=== PATIENT | female | born 1965 | race Caucasian/White ===

== ENCOUNTER 2019-10-13 08:40 | Outpatient (CLI) | payer OTHER, SELFPAY ==
--- NOTE | ~2019-10-13 | MR_ITS ---
EXAMINATION: MR brain/brain stem wo con DATE: 10/13/2019 10:13 INDICATION: Stroke TECHNIQUE: Magnetic resonance imaging (MRI) of the brain and brainstem was performed without intraven ous contrast. Sequences included sagittal and axial T1-weighted SE, axial diffusion-weighted FS SE, a xial T2*-weighted GRE, axial T2-weighted FLAIR, and axial T2-weighted FSE. Apparent diffusion coeffic ient (ADC) maps were created. COMPARISON: None. FINDINGS: Regions of encephalomalacia with associated white matter T2 hyperintensity in the right frontal, jaquelin etal and temporal lobes consistent with chronic infarcts. Likely choroid fissure cyst the inferior as pect of the left basal ganglia. There are no areas of restricted diffusion to suggest acute infarctio n. No intracranial hemorrhage or abnormal intracranial mass lesion. There are no intraparenchymal sig nal abnormalities seen on the other pulse sequences. Ventricles are normal in size aside from ex vacu o dilation of the occipital and temporal horns of the right lateral ventricle. There are no abnormal extra-axial fluid collections. Absent flow void in the extracranial and petrous portions of the right internal carotid artery consistent with occlusion of likely collateral flow from the right ophthalmi c artery resulting in a flow-void in the more distal supraclinoid segment. Flow voids are seen in the remaining cerebral arteries on the T2-weighted sequences consistent with their expected patency. Vis ualized orbits and soft tissues are unremarkable. IMPRESSION: 1. No acute intracranial process. 2. Chronic infarcts in the right frontal, parietal and temporal lobes in the right middle cerebral ar hilda vascular distribution. 3. Occlusion of the proximal right internal carotid artery with likely distal reconstitution by colla teral flow from the ophthalmic artery. Reviewed, dictated and finalized at location A. IMPRESSION: 1. No acute intracranial process. 2. Chronic infarcts in the right frontal, parietal and temporal lobes in the ri ght middle cerebral artery vascular distribution. 3. Occlusion of the proximal right internal carotid artery with likely distal r econstitution by collateral flow from the ophthalmic artery.
--- NOTE | ~2019-10-13 | US_ITS ---
EXAMINATION: US carotid duplex BI DATE: 10/13/2019 11:46 INDICATION: Carotid artery stenosis post prior endarterectomy TECHNIQUE: Grayscale, color Doppler, and pulsed Doppler images of the cervical carotid arteries were obtained. The degree of vessel stenosis is placed in one of the following categories: normal, <50%, 5 0-69%, >=70% but less than near-occlusion, near-occlusion, or total occlusion. Note that percent sten osis relative to normal distal artery lumen diameter is indirectly measured from velocity measurement s as described by Tuan, et al. Radiology 2003; [id number]. COMPARISON: None. FINDINGS: RIGHT: The right common carotid artery (CCA) peak systolic velocity (PSV) is 69 cm/s. The right internal car otid artery is occluded with no discernible flow on color Doppler. The external carotid artery (ECA) PSV is 92 cm/s. There is antegrade flow in the right vertebral artery. LEFT: The left CCA PSV is 85 cm/s. The left ICA PSV is 103 cm/s. The left ICA EDV is 54 cm/s. The left ICA/ CCA PSV ratio is 1.2. Grayscale and color Doppler images yield an estimate of <50% diameter reduction from plaque in the ICA. The ECA PSV is 67 cm/s. There is antegrade flow in the left vertebral artery . IMPRESSION: 1. Complete occlusion of the right internal carotid artery. 2. <50% stenosis in the left internal carotid artery. Reviewed, dictated and finalized at location A.
== END 2019-10-13 08:41 | disposition home or self-care (01) ==
PROVIDERS: PCP Emergency Medicine; Visit Provider Psychiatry & Neurology Neurology
DX: I65.23 Occlusion and stenosis of bilateral carotid arteries (principal)
CPT/HCPCS: 70551; 93880